=== PATIENT | female | born 1930 | race Caucasian/White ===

== ENCOUNTER 2017-10-08 22:30 | Emergency (ER) | payer MEDICARE, OTHER ==
[2017-10-08 22:41] VITALS: BP 190/85
[2017-10-09 01:07] LABS: ABS Basophils 0 10^3/ul (0-0.2); ABS Eosinophils 0.1 10^3/ul (0-0.6); ABS Lymphocytes 2.1 10^3/ul (1.0-4.8); ABS Monocytes 0.5 10^3/ul (0-0.8); ABS Neutrophils 4.7 10^3/ul (1.5-7.7); ABS Nucleated RBC 0.01 10^3/ul; Eosinophil % 1.5 % (0-6); Hematocrit 42 % (35-47); Hemoglobin 14.1 g/dl (12.0-16.0); Lymphocyte % 28.5 % (25-47); Mean Corpuscular HGB Conc 34 g/dl (31-36); Mean Corpuscular Hemoglobin 31 pg (27-31); Mean Corpuscular Volume 92 fL (80-97); Mean Platelet Volume 8 um3 (7.4-10.4); Nucleated Red Blood Cells % 0.1; Platelet Count 244 10^3/ul (150-450); Red Blood Count 4.59 10^6/ul (4.0-5.4); Red Cell Distribution Width 13 % (10.5-15); White Blood Count 7.5 10^3/ul (3.5-10.8)
[2017-10-09 01:25] LABS: EGFR Non-African American 60.1 (>60)
[2017-10-09 01:58] LABS: Urine Appearance Cloudy; Urine Blood Negative (Negative); Urine Color Amber; Urine Ketones 1+ (Negative); Urine Protein 1+(30 mg/dL) (Negative); Urine Specific Gravity 1.028 (1.010-1.030); Urine Urobilinogen Negative (Negative)
[2017-10-09] MEDS ORDERED: NS 0.9% 500 ML* 500 ML IV SCH (04:00)
--- NOTE | 2017-10-09 07:31 | RAD ---
INDICATION: Confusion COMPARISON: July 04, 2014 TECHNIQUE: Noncontrast axial source images were acquired from the skull base to the vertex. FINDINGS: Ventricles/sulci: There is cortical atrophy with compensatory dilatation of the CSF spaces. Brain parenchyma: There is periventricular and subcortical white matter change compatible with chronic ischemia. The findings are progressive Intracranial hemorrhage:None. Extra-axial spaces: There are no abnormal extra axial fluid collections or evidence of extra-axial mass. Calvarium: There is no calvarial fracture or other calvarial abnormality. Scalp: There is no evidence of scalp or extracalvarial soft tissue abnormality. Paranasal sinuses/mastoid: The paranasal sinuses and mastoid air cells are clear. Other: None. IMPRESSION: Cortical involutional changes with progressive chronic microvascular ischemic change. No acute findings.
--- NOTE | 2017-11-05 22:46 | ED ---
Eder Shafer Alfonso, scribed for Magdiel Mckinney MD on 10/08/17 at 2337 . Altered Mental Status - HPI Summary HPI Summary: This patient is an 86 year old F [facility] earlier today. Per patient she was brought in by police for sitting in her broken down car. The patient rates the pain 0/10 in severity. Symptoms aggravated and alleviated by nothing. Patient reports memory troubles. Patient denies headache , recent falls, substance use today, HI, and SI. She lives alone with a cat. - History Of Current Complaint Chief Complaint: EDMentalHealth Stated Complaint: 941 Hx Obtained From: Patient Onset/Duration: Still Present Timing: Constant Character: Confusion Aggravating Factor(s): Nothing Alleviating Factor(s): Nothing Associated Signs And Symptoms: Negative: Recent Trauma PMH/Surg Hx/FS Hx/Imm Hx Opthamlomology History: Denies: Hx Legally Blind EENT History: Denies: Hx Deafness Infectious Disease History: No Infectious Disease History: Denies: Traveled Outside the [place] in Last 30 Days - Family History Known Family History: Positive: Unknown - DUE TO MEMORY TROUBLES - Social History Lives: Alone Alcohol Use: Occasionally Hx Substance Use: No Substance Use Type: Reports: None Hx Tobacco Use: No Smoking Status (MU): Never Smoked Tobacco Review of Systems Positive: Other - Negative recent falls Neurological: Other - AMS Negative: Headache Psychological: Other - Negative substance use today, HI, and SI. All Other Systems Reviewed And Are Negative: Yes Physical Exam - Summary Physical Exam Summary: Appearance: Well-appearing, Well-nourished Skin: Warm, Dry, No rash Eyes: Normal, PERRL, EOMI, sclera anicteric ENT: Normal Neck: Supple, nontender Respiratory: Clear to auscultation Cardiovascular: S1, S2, no murmur, no rub, no gallop Abdomen: Soft, nontender, no organomegaly Bowel sounds: Present Musculoskeletal: Normal, Strength/ROM Intact, no edema, pulses symmetrical Neurological: Normal, A&Ox3, cranial nerves II-XII WNL, follows commands, gait not tested, sensation intact to pin and light touch, Down going toes Psychiatric: Talkative, occasionally inappropriate, troubling understanding directions, follows simple commands, confusion about dates knows shes in hospital, agitation Triage Information Reviewed: Yes Vital Signs On Initial Exam: Initial Vitals Temp Pulse Resp BP Pulse Ox 97.0 F 74 18 190/85 94 10/08/17 22:35 10/08/17 22:35 10/08/17 22:35 10/08/17 22:35 10/08/17 22:35 Vital Signs Reviewed: Yes Diagnostics - Vital Signs Vital Signs Temp Pulse Resp BP Pulse Ox 10/08/17 22:35 97.0 F 74 18 190/85 94 - Laboratory Lab Results: Lab Results 10/09/17 10/09/17 10/09/17 Range/Units 00:50 00:50 00:50 WBC 7.5 (3.5-10.8) 10^3/ul RBC 4.59 (4.0-5.4) 10^6/ul Hgb 14.1 (12.0-16.0) g/dl Hct 42 (35-47) % MCV 92 (80-97) fL MCH 31 (27-31) pg MCHC 34 (31-36) g/dl RDW 13 (10.5-15) % Plt Count 244 (150-450) 10^3/ul MPV 8 (7.4-10.4) um3 Neut % (Auto) 63.0 (38-83) % Lymph % (Auto) 28.5 (25-47) % [place] % (Auto) 6.5 (1-9) % Eos % (Auto) 1.5 (0-6) % Baso % (Auto) 0.5 (0-2) % Absolute Neuts (auto) 4.7 (1.5-7.7) 10^3/ul Absolute Lymphs (auto) 2.1 (1.0-4.8) 10^3/ul Absolute Monos (auto) 0.5 (0-0.8) 10^3/ul Absolute Eos (auto) 0.1 (0-0.6) 10^3/ul Absolute Basos (auto) 0 (0-0.2) 10^3/ul Absolute Nucleated RBC 0.01 10^3/ul Nucleated RBC % 0.1 Carbon Monoxide Screen < 4 (<4.0) % Sodium 140 (133-145) mmol/L Potassium 3.6 (3.5-5.0) mmol/L Chloride 104 (101-111) mmol/L Carbon Dioxide 30 (22-32) mmol/L Anion Gap 6 (2-11) mmol/L BUN 31 H (6-24) mg/dL Creatinine 0.89 (0.51-0.95) mg/dL Est GFR ( Amer) 77.3 (>60) Est GFR (Non-Af Amer) 60.1 (>60) BUN/Creatinine Ratio 34.8 H (8-20) Glucose 104 H (70-100) mg/dL Calcium 10.6 H (8.6-10.3) mg/dL Total Bilirubin 1.30 H (0.2-1.0) mg/dL AST 15 (13-39) U/L ALT 10 (7-52) U/L Alkaline Phosphatase 76 (34-104) U/L Total Protein 7.2 (6.4-8.9) g/dL Albumin 4.2 (3.2-5.2) g/dL Globulin 3.0 (2-4) g/dL Albumin/Globulin Ratio 1.4 (1-3) TSH 2.22 (0.34-5.60) mcIU/mL Urine Color Urine Appearance Urine pH (5-9) Ur Specific Henry (1.010-1.030) Urine Protein (Negative) Urine Ketones (Negative) Urine Blood (Negative) Urine Nitrate (Negative) Urine Bilirubin (Negative) Urine Urobilinogen (Negative) Ur Leukocyte Esterase (Negative) Urine WBC (Auto) (Absent) Urine RBC (Auto) (Absent) Ur Squamous Epith Cells (Absent) Calcium Oxalate Crystal (Absent) Urine Bacteria (Absent) Hyaline Casts (Absent) Urine Glucose (Negative) Serum Alcohol < 10 (<10) mg/dL 10/09/17 Range/Units 01:30 WBC (3.5-10.8) 10^3/ul RBC (4.0-5.4) 10^6/ul Hgb (12.0-16.0) g/dl Hct (35-47) % MCV (80-97) fL MCH (27-31) pg MCHC (31-36) g/dl RDW (10.5-15) % Plt Count (150-450) 10^3/ul MPV (7.4-10.4) um3 Neut % (Auto) (38-83) % Lymph % (Auto) (25-47) % [place] % (Auto) (1-9) % Eos % (Auto) (0-6) % Baso % (Auto) (0-2) % Absolute Neuts (auto) (1.5-7.7) 10^3/ul Absolute Lymphs (auto) (1.0-4.8) 10^3/ul Absolute Monos (auto) (0-0.8) 10^3/ul Absolute Eos (auto) (0-0.6) 10^3/ul Absolute Basos (auto) (0-0.2) 10^3/ul Absolute Nucleated RBC 10^3/ul Nucleated RBC % Carbon Monoxide Screen (<4.0) % Sodium (133-145) mmol/L Potassium (3.5-5.0) mmol/L Chloride (101-111) mmol/L Carbon Dioxide (22-32) mmol/L Anion Gap (2-11) mmol/L BUN (6-24) mg/dL Creatinine (0.51-0.95) mg/dL Est GFR ( Amer) (>60) Est GFR (Non-Af Amer) (>60) BUN/Creatinine Ratio (8-20) Glucose (70-100) mg/dL Calcium (8.6-10.3) mg/dL Total Bilirubin (0.2-1.0) mg/dL AST (13-39) U/L ALT (7-52) U/L Alkaline Phosphatase (34-104) U/L Total Protein (6.4-8.9) g/dL Albumin (3.2-5.2) g/dL Globulin (2-4) g/dL Albumin/Globulin Ratio (1-3) TSH (0.34-5.60) mcIU/mL Urine Color Lena Urine Appearance Cloudy Urine pH 5.0 (5-9) Ur Specific Henry 1.028 (1.010-1.030) Urine Protein 1+(30 mg/dl) H (Negative) Urine Ketones 1+ H (Negative) Urine Blood Negative (Negative) Urine Nitrate Negative (Negative) Urine Bilirubin Negative (Negative) Urine Urobilinogen Negative (Negative) Ur Leukocyte Esterase 3+ H (Negative) Urine WBC (Auto) 3+(>20/hpf) H (Absent) Urine RBC (Auto) 3+(>10/hpf) H (Absent) Ur Squamous Epith Cells Present H (Absent) Calcium Oxalate Crystal Present H (Absent) Urine Bacteria Absent (Absent) Hyaline Casts Present H (Absent) Urine Glucose Negative (Negative) Serum Alcohol (<10) mg/dL Result Diagrams: 10/09/17 00:50 10/09/17 00:50 Lab Statement: Any lab studies that have been ordered have been reviewed, and results considered in the medical decision making process. - CT Brain CT Interpretation Completed By: Radiologist - Atrophic changes which have progressed since 2003. Chronic microvascular changes in the cerebral white matter which have also progressed. No hemorrhage. No mass. No detectable infarct. Osseous structures are intact. ED physician has reviewed this radiology report and agrees. Altered Mental Statu Course/Dx - Course Assessment/Plan: Patient medically cleared for MHE. Test results within normal limits except for mild hyperkalemia. - Diagnoses Discharge Diagnoses: Dementia Discharge - Discharge Plan Condition: Fair Disposition: PSYCHIATRIC FACILITY-[facility] Referrals: No Primary Care Phys,NOPCP [Primary Care Provider] - The documentation as recorded by the Eder cordero Alfonso accurately reflects the service I personally performed and the decisions made by , Magdiel Mckinney MD.
== END 2017-10-09 06:45 | disposition home or self-care (01) ==
LOC: ED 22:30
DX: F03.90 Unspecified dementia, unspecified severity, without behavioral disturbance, psychotic disturbance, mood disturbance, and anxiety (principal)
CPT/HCPCS: 36415; 70450; 80053; 80320; 81003; 81015; 82375; 84443; 85025; 87086; 99283; G0480

== ENCOUNTER 2018-09-14 11:37 | Emergency (ER) | payer MEDICARE ==
--- NOTE | 2018-09-14 11:49 | ED ---
Head Injury - HPI Summary HPI Summary: Patient is a 87 y/o F brought in by ambulance presenting to ED with head injury. Provider in room upon arrival of patient at 1137. Patient fell in hallway and struck her head. This fall was witnessed by [facility] staff, where patient resides. LOC is reported, patient is noted to be more altered after fall. PMHx of glaucoma is noted. Patient is on hydroxyzine and risperdal. In room, patient is non-verbal, level 5 caveat. Home medications and allergies are reviewed. - History Of Current Complaint Stated Complaint: WEAKNESS Time Seen by Provider: 09/14/18 11:41 Hx Obtained From: EMS Hx From Patient Unobtainable Due To: Altered Mental Status Mechanism Of Injury: Fall From A Standing Position Onset/Duration: Still Present Pain Intensity: 0 Pain Scale Used: Adult Non Verbal Location of Head Injury: Occipital - left Associated Signs And Symptoms: LOC (Time In Secs./Mins/Hrs), Other: - laceration to left occipital, no active bleeding, AMS - Allergies/Home Medications Allergies/Adverse Reactions: Allergies Allergy/AdvReac Type Severity Reaction Status Date / Time No Known Allergies Allergy Verified 09/14/18 11:49 PMH/Surg Hx/FS Hx/Imm Hx Sensory History: Denies: Hx Legally Blind, Hx Deafness Opthamlomology History: Denies: Hx Legally Blind EENT History: Denies: Hx Deafness Psychiatric History: Denies: Hx Eating Disorder - Family History Known Family History: Positive: Unknown - level 5 caveat, non-verbal and AMS - Social History Alcohol Use: Occasionally Hx Substance Use: No Substance Use Type: Reports: None Hx Tobacco Use: No Smoking Status (MU): Never Smoked Tobacco Review of Systems - ROS Summary Review of Systems Summary: level 5 caveat, AMS and nonverbal Positive: Other - fall from standing height Positive: Edema - BLE, chronic Neurological: Other - AMS, head injury Positive: Syncope - positive LOC All Other Systems Reviewed And Are Negative: No - Comments Additional Review of Systems Comments: level 5 caveat, AMS Physical Exam - Summary Physical Exam Summary: Appearance: Elderly, malnourished, lying in bed comfortably Skin: Warm, dry, no obvious rash; 1 cm laceration to left occipital area with no active bleeding Eyes: sclera anicteric, no conjunctival pallor ENT: mucous membranes moist, pharynx appears normal Neck: Supple, nontender Respiratory: Clear to auscultation, no signs of respiratory distress Cardiovascular: Normal S1, S2. No murmurs. Normal distal pulses in tibial and radial bilaterally. Abdomen: Soft, nontender, normal active bowel sounds present Musculoskeletal: Normal, Strength/ROM Intact Neurological: Patient is awake but does not turn to voice or follow commands, unable to get any verbal response from patient. Level 5 caveat, AMS. GCS 13 Psychiatric: affect is normal, does not appear anxious or depressed Triage Information Reviewed: Yes Vital Signs On Initial Exam: Initial Vitals Temp Pulse Resp BP Pulse Ox 97.8 F 63 13 151/80 96 09/14/18 11:49 09/14/18 11:49 09/14/18 11:49 09/14/18 11:49 09/14/18 11:49 Vital Signs Reviewed: Yes Diagnostics - Laboratory Result Diagrams: 09/14/18 12:02 09/14/18 11:51 Lab Statement: Any lab studies that have been ordered have been reviewed, and results considered in the medical decision making process. - CT BRAIN CT CT Interpretation Completed By: Radiologist Summary of CT Findings: BRAIN CT IMPRESSION: NO ACUTE INTRACRANIAL PATHOLOGY. DIFFUSE INVOLUTIONAL CHANGE WITH CHRONIC SMALL VESSEL ISCHEMIC CHANGES. THIS REPORT WAS REVIEWED BY ED PHYSICIAN. - EKG 1205 Cardiac Rate: Bradycardia - rate of 57 bpm EKG Rhythm: Sinus Bradycardia Summary of EKG Findings: left ventricular hypertrophy. Re-Evaluation - Re-Evaluation First Eval Re-Evaluation Time: 14:00 Head Injury Course/Dx Course Of Treatment: Patient is a 87 y/o F brought in by ambulance presenting to ED with head injury. Provider in room upon arrival of patient at 1137. This fall was witnessed by [facility] staff, where patient resides. LOC is reported, patient is noted to be more altered after fall. PMHx of glaucoma is noted. Patient is on hydroxyzine and risperdal. On physical exam, patient is noted to be elderly and malnourished. Patient is awake but does not turn to voice or follow commands, unable to get any verbal response from patient. Level 5 caveat , AMS. GCS 13. BRAIN CT IMPRESSION: NO ACUTE INTRACRANIAL PATHOLOGY. DIFFUSE INVOLUTIONAL CHANGE WITH CHRONIC SMALL VESSEL ISCHEMIC CHANGES. EKG showed sinus bradycardia with rate of 57 BPM, left ventricular hypertrophy. UA was negative. Labs showed TSH 1.78, trop 0.03, glucose 85, WBC 10.9. Patient was discharged to [facility]. Dx of closed head injury and scalp laceration. - Diagnoses Provider Diagnoses: Scalp laceration, Closed head injury Discharge - Sign-Out/Discharge Documenting (check all that apply): Patient Departure - discharge - Discharge Plan Condition: Good Disposition: HOME Patient Education Materials: Head Injury (ED) Referrals: No Primary Care Phys,NOPCP [Primary Care Provider] - Additional Instructions: Mrs. Fountain'jalen head CT is negative, and routine screening labs and UA are ok. The scalp injury is small and does not require closure, it should heal on its own. - Billing Disposition and Condition Condition: GOOD Disposition: Home - Attestation Statements Document Initiated by Sanjuana: Yes Documenting Scribe: Bernabe Puri Provider For Whom Sanjuana is Documenting (Include Credential): Ezra Dasilva MD Scribe Attestation: Bernabe Shafer , scribed for Ezra Dasilva MD on 09/15/18 at 1138. Scribe Documentation Reviewed: Yes Provider Attestation: The documentation as recorded by the Bernabe cordero accurately reflects the service I personally performed and the decisions made by me, Ezra Dasilva MD
[2018-09-14 12:32] LABS: EGFR Non-African American 81.8 (>60)
[2018-09-14 13:06] LABS: ABS Basophils 0 10^3/ul (0-0.2); ABS Eosinophils 0.1 10^3/ul (0-0.6); ABS Lymphocytes 1.3 10^3/ul (1.0-4.8); ABS Monocytes 0.7 10^3/ul (0-0.8); ABS Neutrophils 8.7 10^3/ul (1.5-7.7); ABS Nucleated RBC 0 10^3/ul; Eosinophil % 1.2 % (0-6); Hematocrit 40 % (35-47); Hemoglobin 12.9 g/dl (12.0-16.0); Lymphocyte % 12.2 % (25-47); Mean Corpuscular HGB Conc 33 g/dl (31-36); Mean Corpuscular Hemoglobin 31 pg (27-31); Mean Corpuscular Volume 95 fL (80-97); Mean Platelet Volume 8.4 fL (7.4-10.4); Nucleated Red Blood Cells % 0.1; Platelet Count 210 10^3/ul (150-450); Red Blood Count 4.16 10^6/ul (4.00-5.40); Red Cell Distribution Width 16 % (10.5-15); White Blood Count 10.9 10^3/ul (3.5-10.8)
[2018-09-14 13:43] LABS: Urine Appearance Cloudy; Urine Blood Negative (Negative); Urine Color Yellow; Urine Ketones Negative (Negative); Urine Protein Negative (Negative); Urine Specific Gravity 1.016 (1.010-1.030); Urine Urobilinogen Negative (Negative)
[2018-09-14 14:38] VITALS: BP 185/96
== END 2018-09-14 16:00 | disposition home or self-care (01) ==
LOC: ED 11:37
DX: S01.01XA Laceration without foreign body of scalp, initial encounter (principal); S09.90XA Unspecified injury of head, initial encounter; W19.XXXA Unspecified fall, initial encounter; Y92.129 Unspecified place in nursing home as the place of occurrence of the external cause; R00.1 Bradycardia, unspecified
CPT/HCPCS: 36415; 70450; 80053; 81003; 83605; 84443; 84484; 85025; 93005; 99282